=== PATIENT | female | born 1980 | race Caucasian/White ===

== ENCOUNTER 2017-04-02 16:59 | Emergency (ER) | payer SELFPAY ==
[~2017-04-02] VITALS: Ht 162.6 cm; Wt 86.4 kg
[2017-04-02 18:02] LABS: BLOOD UREA NITROGEN 11 mg/dL (7-18)
[2017-04-02 19:09] VITALS: BP 107/53
== END 2017-04-02 20:56 | disposition left against medical advice (07) ==
LOC: ED 19:21
DX: N30.00 Acute cystitis without hematuria (principal)
CPT/HCPCS: 36415; 76801; 80048; 81001; 82040; 84702; 85025; 86901; 87086

== ENCOUNTER 2017-04-04 17:59 | Emergency (ER) | payer SELFPAY ==
[~2017-04-04] VITALS: Ht 162.6 cm; Wt 86.2 kg
[2017-04-04 18:31] VITALS: BP 110/62
== END 2017-04-04 20:32 | disposition home or self-care (01) ==
LOC: ED 20:20
DX: O00.10 Tubal pregnancy without intrauterine pregnancy (principal)
CPT/HCPCS: 36415; 84702; 99283

== ENCOUNTER 2017-04-08 20:23 | Emergency (ER) | payer SELFPAY ==
[~2017-04-08] VITALS: Ht 162.6 cm; Wt 85.7 kg
[2017-04-08] MEDS ORDERED: SODIUM CHLORIDE 0.9% 1,000ML IVBOLUS ONE (20:30)
[2017-04-08] MEDS ORDERED: SODIUM CHLORIDE FLUSH 10ML SYR IVF ONE (20:30)
[2017-04-08 21:23] VITALS: BP 115/67
[2017-04-08 21:33] LABS: ASPARTATE AMINO TRANSFERASE 15 U/L (15-37); BLOOD UREA NITROGEN 10 mg/dL (7-18)
== END 2017-04-08 22:40 | disposition home or self-care (01) ==
LOC: ED 22:13
DX: O00.10 Tubal pregnancy without intrauterine pregnancy (principal); Z32.01 Encounter for pregnancy test, result positive
CPT/HCPCS: 36415; 76801; 80053; 84702; 85025; 88304

== ENCOUNTER 2017-06-08 11:54 | Emergency (ER) | payer SELFPAY ==
[~2017-06-08] VITALS: Ht 162.6 cm; Wt 85.4 kg
[2017-06-08] MEDS ORDERED: SODIUM CHLORIDE 0.9% 1,000 ML IV ONE (12:59)
[2017-06-08] MEDS ORDERED: MORPHINE SULFATE 4 MG/ML, 1ML IVPush PRN (13:00)
[2017-06-08] MEDS ORDERED: ONDANSETRON 2MG/ML, 2ML IVPush ONE (13:00)
[2017-06-08] MEDS ORDERED: SODIUM CHLORIDE 0.9% 1,000ML IVBOLUS ONE (13:00)
[2017-06-08] MEDS ORDERED: MORPHINE SULFATE 4 MG/ML, 1ML ONE (13:19)
[2017-06-08] MEDS ORDERED: ONDANSETRON 2MG/ML, 2ML ONE (13:19)
[2017-06-08 13:30] LABS: ASPARTATE AMINO TRANSFERASE 21 U/L (15-37); BLOOD UREA NITROGEN 11 mg/dL (7-18)
[2017-06-08 16:44] VITALS: BP 104/63
== END 2017-06-08 16:46 | disposition home or self-care (01) ==
LOC: ED 14:51
DX: O34.81 Maternal care for other abnormalities of pelvic organs, first trimester (principal); Z3A.01 Less than 8 weeks gestation of pregnancy
CPT/HCPCS: 36415; 76830; 80053; 81001; 83690; 84702; 84703; 85025; 96361; 96374; J2405; J7030

== ENCOUNTER 2017-06-09 12:50 | Emergency (ER) | payer SELFPAY ==
[~2017-06-09] VITALS: Ht 162.6 cm; Wt 95.0 kg
[2017-06-09] MEDS ORDERED: SODIUM CHLORIDE 0.9% 1,000ML IVBOLUS ONE (13:30)
[2017-06-09] MEDS ORDERED: MORPHINE SULFATE 4 MG/ML, 1ML IVPush PRN (13:30)
[2017-06-09] MEDS ORDERED: ONDANSETRON 2MG/ML, 2ML IVPush ONE (13:30)
[2017-06-09] MEDS ORDERED: ONDANSETRON 2MG/ML, 2ML ONE (13:56)
[2017-06-09] MEDS ORDERED: MORPHINE SULFATE 4 MG/ML, 1ML ONE (13:56)
[2017-06-09 13:58] LABS: BLOOD UREA NITROGEN 11 mg/dL (7-18)
[2017-06-09 14:03] LABS: ASPARTATE AMINO TRANSFERASE 27 U/L (15-37)
[2017-06-09] MEDS ORDERED: HYDROcodone/APAP 5/325 TABLET ONE (16:28)
[2017-06-09] MEDS ORDERED: HYDROcodone/APAP 5/325 TABLET PO ONE (16:30)
[2017-06-09 16:31] VITALS: BP 119/71
== END 2017-06-09 16:51 | disposition home or self-care (01) ==
LOC: ED 13:46
DX: R10.2 Pelvic and perineal pain (principal); Z98.51 Tubal ligation status
CPT/HCPCS: 36415; 76830; 80053; 81001; 82105; 82677; 83615; 84702; 85025; 86304; 86336; 87086; 96361; 96374; 96375; J2405; J7030

== ENCOUNTER 2017-06-21 15:53 | Emergency (ER) | payer OTHER ==
[~2017-06-21] VITALS: Ht 162.6 cm; Wt 83.8 kg
[2017-06-21] MEDS ORDERED: SODIUM CHLORIDE 0.9% 1,000ML IVBOLUS ONE (16:30)
[2017-06-21] MEDS ORDERED: SODIUM CHLORIDE FLUSH 10ML SYR IVF ONE (16:30)
[2017-06-21 16:57] LABS: HEMATOCRIT 40.1 % (34.6-47.8); HEMOGLOBIN 13.4 g/dL (11.7-16.4); WHITE BLOOD COUNT 9.4 x10^3/uL (3.4-10)
[2017-06-21 17:10] LABS: ASPARTATE AMINO TRANSFERASE 17 U/L (15-37); BLOOD UREA NITROGEN 7 mg/dL (7-18)
[2017-06-21 21:32] VITALS: BP 118/76
== END 2017-06-21 21:36 | disposition home or self-care (01) ==
LOC: ED 19:22
DX: N83.202 Unspecified ovarian cyst, left side (principal); N83.201 Unspecified ovarian cyst, right side; Z98.51 Tubal ligation status; F17.200 Nicotine dependence, unspecified, uncomplicated
CPT/HCPCS: 36415; 76801; 80053; 84702; 85025; 88305; 99285

== ENCOUNTER 2018-07-30 20:05 | Emergency (ER) | payer MEDICAID ==
[~2018-07-30] VITALS: Ht 162.6 cm; Wt 98.0 kg
[2018-07-30 20:14] VITALS: BP 131/93
== END 2018-07-30 21:04 | disposition home or self-care (01) ==
LOC: ED 20:58
DX: M54.42 Lumbago with sciatica, left side (principal)
CPT/HCPCS: 99283